=== PATIENT | female | born 1995 | race Caucasian/White ===

== ENCOUNTER 2017-05-07 15:26 | Emergency (ER) | payer BC, MEDICAID ==
[2017-05-07 15:40] VITALS: BP 138/62
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
[2017-05-07] MEDS ORDERED: BACIGUENT PACKET ONE (16:16)
[2017-05-07] MEDS ORDERED: BACIGUENT PACKET TP ONE (16:23)
[2017-05-07 16:40] VITALS: PULSE 70
[2017-05-07] MEDS ORDERED: TORAdol 30 mg Injection IM ONE (17:30)
[2017-05-07] MEDS ORDERED: TORAdol 30 mg Injection ONE (17:35)
[2017-05-07] MEDS ORDERED: Vibramycin 100 MG PO ONE (17:53)
[2017-05-07 17:55] VITALS: O2SAT 100
[2017-05-07] MEDS ORDERED: Vibramycin 100 MG ONE (18:00)
== END 2017-05-07 18:09 | disposition home or self-care (01) ==
LOC: ED 15:26
DX: L97.119 Non-pressure chronic ulcer of right thigh with unspecified severity (principal)
CPT/HCPCS: 84703; 87070; 96372; 99284; J1885; A9270-GY

== ENCOUNTER 2019-02-08 11:54 | Observation (INO) | payer BC, OTHER ==
[2019-02-08 13:15] LABS: Hemoglobin 12.3 gm/dl (12.0-16.0); Mean Cell Volume 96.5 fl (78-100); Mean Corpuscular Hgb Concent. 34.2 g/dl (32-36); Mean Platelet Volume 9.9 fl (6-9.5); Platelet Count 308 K/mm3 (150-450); Red Blood Count 3.73 M/mm3 (4.1-5.4); Red Cell Distribution Width 14.2 % (11.5-14.0); White Blood Count 10.7 K/mm3 (4.0-10.5)
[2019-02-08 13:28] LABS: Mean Corpuscular Hemoglobin 32.9 pg (26-32)
[2019-02-08 14:16] VITALS: BP 101/69; PULSE 74; O2SAT 99
[2019-02-08 15:28] LABS: Lymphocytes 25 % (24-44); Monocyte 7 % (0.0-12.0); Neutrophils 68 % (36.0-66.0); Total Cells Counted 100
[2019-02-08 15:29] LABS: Platelet Estimate NORMAL (NORMAL)
[2019-02-08 15:31] LABS: Granulocyte Absolute (ANC) 7.26 (1.4-6.9)
--- NOTE | 2019-02-08 20:21 | XRAY ---
Exam: OB biophysical profile without nonstress from 02/08/2019. Comparison: None. Indication decreased movement. Findings: Regarding breathing movements, there was at least 30 seconds of sustained breathing movements in 30 minutes of observation. This results in a score of 2 points. Regarding movements, there were 3 or more gross body movements in 30 minutes of observation. Simultaneous limb and trunk movements are counted as a single movement. The score for this was 2 points. Regarding tone, there was at least one episode of motion of a limb from a position of flexion to extension and a rapid return to flexion resulting in a score of 2 points. Qualitative amniotic fluid volume revealed a pocket of amniotic fluid that measured at least 1 cm in perpendicular planes resulting in a score of 2 points. Impression: 1. The biophysical profile total score was 8 points out of a maximum of 8 points.
--- NOTE | 2019-02-08 20:26 | XRAY ---
Exam: OB ultrasound greater than 14 weeks from 02/08/2019 Comparison: OB ultrasound greater than 14 weeks from 01/12/2019. Indication: Size greater than dates. Findings: A single live intrauterine fetus is seen in the cephalic lie. The placenta appears posterior and fundal. There is a normal amount of amniotic fluid with the amniotic fluid index measuring 15.3 cm, previous 15.4 cm. Measurements of the biparietal diameter, head circumference, abdominal circumference, and femur length suggest a composite gestational age of 36 weeks 0 days representing satisfactory intrauterine growth since the previous exam from 01/12/2019. According to the gestational age by dates, this is about one week 1 day further along. Estimated due date by ultrasound measurements is 03/08/2019 and estimated due date by dates is 03/16/2019. Estimated weight is 2691 g plus or -404 g (5 lbs. 15 oz.+ or -14 ounces) placing the fetus in the 65.2 percentile for weight. The size ratios are all within normal limits. body movement and respiration was seen by the electro mechanical technologist. 2 measurements of the heart rate measured 126 bpm and 138 bpm. A full detailed anatomy exam was not performed. A fluid-filled stomach and urinary bladder were identified. Impression: 1. 36 week 0 day single live intrauterine fetus in the cephalic lie. This represents satisfactory intrauterine growth since the previous OB ultrasound exam from 01/12/2019. See above. 2. The placenta is posterior and fundal. 3. A normal amount of amniotic fluid is seen with an amniotic fluid index of 15.3 cm.
[2019-02-09 12:27] LABS: RPR Screen Non Reactive (Non Reactive)
== END 2019-02-08 14:18 | disposition home or self-care (01) ==
LOC: OB 11:54
PROVIDERS: ADMIT Family Medicine; ATTEND Family Medicine
DX: Z34.83 Encounter for supervision of other normal pregnancy, third trimester (principal)
CPT/HCPCS: 0064U; 36415; 59025; 76805; 76819; 85025; 86592; 86593; 86701; 86702; 87389; G0378; 81003

== ENCOUNTER 2019-03-10 04:53 | Inpatient (IN) | payer BC, OTHER ==
[2019-03-10] MEDS ORDERED: Lactated Ringers 1,000 ML IV ONE (05:00)
[2019-03-10] MEDS ORDERED: Reglan 10 MG/2 ML IV SCH (05:00)
[2019-03-10] MEDS ORDERED: BICITRA 30 ML CUP PO SCH (05:00)
[2019-03-10] MEDS ORDERED: Pepcid 20 MG VIAL IV SCH (05:00)
[2019-03-10 05:58] LABS: Hematocrit 40.2 % (35-47); Hemoglobin 13.8 gm/dl (12.0-16.0); Mean Cell Volume 94.6 fl (78-100); Mean Corpuscular Hemoglobin 32.5 pg (26-32); Mean Corpuscular Hgb Concent. 34.3 g/dl (32-36); Mean Platelet Volume 10.1 fl (6-9.5); Platelet Count 290 K/mm3 (150-450); Red Blood Count 4.25 M/mm3 (4.1-5.4); Red Cell Distribution Width 14.6 % (11.5-14.0); White Blood Count 15.2 K/mm3 (4.0-10.5)
[2019-03-10 06:00] LABS: INR 0.9 (0.8-3.0); PROTIME 10.1 SECONDS (9.95-12.35)
[2019-03-10 06:02] LABS: Appearance CLEAR (CLEAR); Bilirubin NEGATIVE (NEGATIVE); Blood NEGATIVE Ery/ul (0-5); Epithelial Cells RARE /HPF (FEW); Glucose NEGATIVE (NEGATIVE); Ketones NEGATIVE (NEGATIVE); Leukocyte Esterase NEGATIVE (NEGATIVE); Nitrite NEGATIVE (NEGATIVE); Protein,Urine Dip NEGATIVE (Negative); Specific Gravity 1.006 (1.005-1.025); Urobilinogen NEGATIVE mg/dL (0-1)
[2019-03-10 06:02] LABS: PTT 31.3 SECONDS (25.3-37.0)
[2019-03-10 06:14] LABS: Amphetamine,Urine NEGATIVE (NEGATIVE); Barbiturate,Urine NEGATIVE (NEGATIVE); Benzodiazepine,Urine NEGATIVE (NEGATIVE); Cocaine,Urine NEGATIVE (NEGATIVE); Methadone,Urine NEGATIVE (NEGATIVE); Opiate,Urine NEGATIVE (NEGATIVE); PCP,Urine NEGATIVE (NEGATIVE); THC,Urine NEGATIVE (NEGATIVE)
[2019-03-10 06:42] LABS: ABO TYPING O; Antibody Screen NEGATIVE (NEGATIVE); RH TYPING POSITIVE
[2019-03-10] MEDS: Lactated Ringers 1,000 ML IV SCH (06:57)
[2019-03-10] MEDS ORDERED: CLINDAMYCIN-D5W 900 MG/50 ML*** 900 MG/50 ML BAG IV SCH (07:00)
[2019-03-10 07:16] LABS: BAND 7 % (0.0-2.0); Lymphocytes 26 % (24-44); Monocyte 4 % (0.0-12.0); Neutrophils 63 % (36.0-66.0); Platelet Estimate NORMAL (NORMAL); Total Cells Counted 100
[2019-03-10 07:17] LABS: Absolute Neutrophil Ct (ANC) 10.6 (1.4-6.9)
[2019-03-10] MEDS ORDERED: SUBLIMAZE 250 MCG/5 ML ONE (07:36)
[2019-03-10] MEDS ORDERED: DIPRIVAN 200 MG/20 ML IV ONE (07:36)
[2019-03-10] MEDS ORDERED: Quelicin Fliptop 200 MG/10 ML ONE (07:37)
[2019-03-10] MEDS ORDERED: Astramorph-Pf 5 MG/10 ML ONE (08:07)
[2019-03-10] MEDS ORDERED: Ephedrine Sulfate 50 MG/ML ONE (08:31)
[2019-03-10] MEDS ORDERED: PHENYLEPHRINE HCL ONE (08:31)
[2019-03-10] MEDS ORDERED: Pitocin 10 UNITS/ML ONE ×2 (08:40)
[2019-03-10] MEDS ORDERED: Marcaine 0.5%/Epinephrine 10 ML ONE (08:51)
[2019-03-10] MEDS ORDERED: MARCAINE 0.5%-EPI 1:200,000 VL IJ ONE (08:51)
[2019-03-10] MEDS ORDERED: BENADRYL 50 MG/ML ONE (08:57)
[2019-03-10 09:36] LABS: Appearance CLEAR (CLEAR); Bilirubin NEGATIVE (NEGATIVE); Blood NEGATIVE Ery/ul (0-5); Glucose NEGATIVE (NEGATIVE); Ketones NEGATIVE (NEGATIVE); Leukocyte Esterase NEGATIVE (NEGATIVE); Nitrite NEGATIVE (NEGATIVE); Protein,Urine Dip NEGATIVE (Negative); Specific Gravity 1.004 (1.005-1.025); Urobilinogen NEGATIVE mg/dL (0-1)
[2019-03-10 09:37] LABS: Bacteria NONE SEEN /HPF (NEGATIVE)
[2019-03-10] MEDS: Dextrose 5%-Lr IV Solution 1000 ML 1,000 ML IV SCH ×2 (09:53→18:41)
[2019-03-10] MEDS ORDERED: CLARITIN 10 MG PO PRN (10:00)
[2019-03-10] MEDS ORDERED: NORCO 5/325 MG PO PRN (10:00)
[2019-03-10] MEDS ORDERED: BENADRYL 50 MG/ML IV PRN (10:00)
[2019-03-10] MEDS ORDERED: Dulcolax 10 MG SUPP PR PRN (10:00)
[2019-03-10] MEDS ORDERED: LANSINOH 40 GM TOP PRN (10:00)
[2019-03-10] MEDS ORDERED: Anucort-HC SUPPOSITORY PR PRN (10:00)
[2019-03-10] MEDS ORDERED: TYLENOL EXTRA STRENGTH 500 MG PO PRN (10:00)
[2019-03-10] MEDS ORDERED: Zofran 4 MG/2 ML VIAL IV PRN (10:00)
[2019-03-10] MEDS ORDERED: Ambien 10 MG PO PRN (10:00)
[2019-03-10] MEDS ORDERED: Mylicon 80MG PO PRN (10:00)
[2019-03-10] MEDS ORDERED: MORPHINE SULFATE 2 MG INJ IV PRN (10:00)
[2019-03-10] MEDS ORDERED: Narcan 0.4 MG/ML IV PRN (10:00)
[2019-03-10] MEDS ORDERED: DEMEROL 50 MG IV PRN (10:00)
[2019-03-10] MEDS ORDERED: HOLD NARCOTIC ANALGESICS AND SEDATIVES X24 HR MC PRN (10:00)
--- NOTE | 2019-03-10 11:41 | OP ---
SURGERY DATE/TIME: 03/10/2019 0808 PREOPERATIVE DIAGNOSIS: Term intrauterine , previous section and undesired fertility. POSTOPERATIVE DIAGNOSIS: Term intrauterine , previous section and undesired fertility, delivered. PROCEDURES: 1) Repeat lower uterine segment transverse incision section. 2) Bilateral tubal ligation by partial salpingectomy. SURGEON: Dr. Sanchez. ANESTHESIA: Spinal. HISTORY: The patient is a 24 year old 5, now para 4 with twins, white female who presents now for elective repeat section. She was appraised of the risks of the procedure including the risk of wound infection, possible bleeding requiring transfusion, possible injury to intra-abdominal organs and a failure rate of the tubal procedure 1:300. The patient verbalized her understanding and desired to have the procedure performed. DESCRIPTION OF PROCEDURE: The patient was prepped and draped in the supine position. After adequate regional anesthesia was confirmed, a Pfannenstiel incision was made over the previous scar and carried down sharply through the fascia which was divided in a horizontal fashion. The rectus muscles were then bluntly retracted laterally. The peritoneal cavity was entered. A bladder flap was developed and the bladder was retracted inferiorly. The uterus was scored in a horizontal fashion and entered in the midline. The wound was extended using bandage scissors. A white male infant was delivered through the abdominal wound. The cord was doubly clamped and divided between the clamps. The baby was handed off for further care. The placenta was then manually removed from the uterus. The uterus was exteriorized and wrapped in moist gauze. A sponge stick was passed through the cervix. The wound edges were then reapproximated using 1-0 chromic suture in a running, interlocking fashion. Next, the right fallopian tube is then identified and elevated with Shanell clamp. A hemostat was passed through an avascular section of the mesosalpinx. The tube was tied on either side of the elevated area and exposed section sent to pathology for confirmation. The left tube was similarly treated. The cul-de-sac area was then swabbed clear of blood and amniotic fluid. The uterus was allowed to fall back into the abdominal cavity. Paracolic gutters were also swabbed clear of blood and amniotic fluid. The peritoneum was repaired using 3-0 chromic suture in a running fashion. The fascia was repaired using 0 Vicryl suture in a running fashion. The skin edges were reapproximated using ellen. The sponge, needle and instrument count was reported as correct at the end of the procedure. The patient was taken back to the recovery room in good condition. Estimated blood loss was 400 cc.
[2019-03-10] MEDS: MOTRIN 400 MG PO PRN ×2 (17:04→23:04)
[2019-03-10] MEDS: Colace 100 MG PO SCH (21:56)
[2019-03-10] MEDS: Nubain 10 MG/ML IV PRN (21:57)
[2019-03-11] MEDS: PERCOCET TABLET 5/325MG PO PRN ×4 (02:48→22:01)
[2019-03-11] MEDS: Nubain 10 MG/ML IV PRN (05:27)
[2019-03-11 05:43] LABS: Hematocrit 32.8 % (35-47); Hemoglobin 11.1 gm/dl (12.0-16.0); Mean Cell Volume 97.3 fl (78-100); Mean Corpuscular Hemoglobin 32.9 pg (26-32); Mean Corpuscular Hgb Concent. 33.8 g/dl (32-36); Platelet Count 255 K/mm3 (150-450); Red Blood Count 3.37 M/mm3 (4.1-5.4); Red Cell Distribution Width 14.7 % (11.5-14.0); White Blood Count 10.5 K/mm3 (4.0-10.5)
[2019-03-11] MEDS: MOTRIN 400 MG PO PRN ×3 (06:12→23:00)
[2019-03-11 06:59] LABS: Lymphocytes 29 % (24-44); Monocyte 3 % (0.0-12.0); Neutrophils 68 % (36.0-66.0); Platelet Estimate NORMAL (NORMAL); Total Cells Counted 100
[2019-03-11] MEDS ORDERED: NON-FORMULARY ITEM (Prenatal Vits W-Ca,Fe,Fa(<1mg) [Prenatal] 1 TAB) PO SCH (10:00)
[2019-03-11] MEDS: Colace 100 MG PO SCH ×2 (10:51→22:01)
[2019-03-11] MEDS: FERREX 150 PO SCH (10:51)
[2019-03-11] MEDS: THERAGRAN MULTIVITAMIN PO SCH (10:51)
[2019-03-11 12:39] VITALS: O2SAT 98
[2019-03-11] MEDS: NORCO 5/325 MG PO PRN ×2 (12:55→13:57)
[2019-03-11] MEDS: Dextrose 5%-Lr IV Solution 1000 ML 1,000 ML IV SCH ×2 (13:18→13:19)
[2019-03-11] MEDS: Lactated Ringers 1,000 ML IV SCH (13:19)
[2019-03-11] MEDS: BENADRYL 25 MG CAPSULE PO SCH ×2 (14:00→16:37)
[2019-03-12] MEDS: PERCOCET TABLET 5/325MG PO PRN ×2 (02:04→06:01)
[2019-03-12] MEDS: MOTRIN 400 MG PO PRN (05:00)
[2019-03-12 09:57] VITALS: BP 117/59; PULSE 80
--- NOTE | 2019-03-12 10:33 | PCM.DS ---
Discharge Summary Date of Admission: 03/10/19 04:53 Admitting Physician: DEION MATTHEW Consults: Consults on Case 03/10/19 05:00 Notify Physician OF ADMISSION 03/10/19 06:00 Notify Anesthesia Provider PRN 03/10/19 10:00 Notify Physician ROUTINE Primary Care Provider: DEION MATTHEW Allergies Allergies amoxicillin [From Augmentin] Allergy (Severe, Verified 03/10/19 06:10) clavulanic acid [From Augmentin] Allergy (Severe, Verified 03/10/19 06:10) Penicillins Allergy (Severe, Verified 03/10/19 06:10) Sulfa (Sulfonamide Antibiotics) Allergy (Severe, Verified 03/10/19 06:10) sulfamethoxazole [From Bactrim] Allergy (Severe, Verified 03/10/19 06:10) trimethoprim [From Bactrim] Allergy (Severe, Verified 03/10/19 06:10) Hospital Summary - Hospital Course Hospital Course: Pt is 24 yo now s/p . Came in for repeat c/section with Dr. Sanchez at 39 weeks. She is Hep C positive. Does have hx drug abuse but clean for over a year. She was late to care, 27 weeks. After that she was compliant with her visits. Surgery was un-eventful. For full details see Dr. Sanchez's operative note. She is . She had some trouble with pain control initially and was kept on percocet longer than is typical. I did tell her she will be going home on a small amount of norco and will not receive more after that. She was concerned about the tylenol but at this low level I do not think it will be an issue regarding her liver. She states there are no open CPS cases on her; she did voluntarily give custody of her other children to her father, but she has visitation. We did call the CPS hotline just to verify but I have no concerns about sending the baby home with mom at this time. UDS negative at the time of admission. - Vitals & Intake/Output Vital Signs: Vital Signs Temperature 98.4 F 03/12/19 08:00 Pulse Rate 80 03/12/19 08:00 Respiratory Rate 18 03/12/19 08:00 Blood Pressure 117/59 03/12/19 08:00 O2 Sat by Pulse Oximetry 98 03/12/19 02:00 Intake & Output: Intake & Output 03/09/19 03/10/19 03/11/19 03/12/19 11:59 11:59 11:59 11:59 Intake Total 6840 1450 Output Total 1750 Balance 5090 1450 Weight 115.666 kg - Lab Result Diagrams: 03/11/19 05:15 Micro Results-Entire Visit: Microbiology 03/10/19 08:20 Urine Culture - Final Urine, Catheterized NO GROWTH - Procedures and Test Procedures and Tests throughout Hospitalization: Therapy Orders & Screens 03/10/19 09:17 Standby STAT Comment: Diagnosis: REPEAT Discharge Exam General Appearance: no apparent distress, alert Neurologic Exam: oriented x 3, cooperative Eye Exam: eyes nml inspection Ears, Nose, Throat Exam: moist mucous membranes Neck Exam: normal inspection Respiratory Exam: normal breath sounds, lungs clear, No crackles/rales, No rhonchi, No wheezing Cardiovascular Exam: regular rate/rhythm, normal heart sounds, No murmur Gastrointestinal/Abdomen Exam: soft, normal bowel sounds, other (fundus firm under umbilicus. wound c/d/i) Back Exam: normal inspection, No rash Extremity Exam: normal inspection, No pedal edema, No swelling Skin Exam: normal color, warm, dry, No rash Final Diagnosis/Problem List - Final Discharge Diagnosis/Problem (1) delivery delivered Current Visit: Yes Status: Acute Assessment & Plan: Doing well post op. Will send pt home with #20 of norco and ibuprofen. Code(s): O82 - ENCOUNTER FOR DELIVERY WITHOUT INDICATION (2) Anemia Current Visit: Yes Status: Acute Assessment & Plan: Mild, hgb 11.1 yesterday. Code(s): D64.9 - ANEMIA, UNSPECIFIED (3) Hepatitis C Current Visit: Yes Status: Chronic Assessment & Plan: I have sent a message to my office staff to get information about where and when to refer her to specialist for treatment. - Discharge Disposition: Home, Self-Care Condition: Good Prescriptions: New Ibuprofen 800 mg PO TID PRN #35 tablet PRN Reason: Pain Hydrocodone/Acetaminophen [[place] 10-325 Tablet] 1 each PO Q4H PRN #20 tablet MDD 4 PRN Reason: Pain Continue Vits W-Ca,Fe,FA(<1Mg) [] 1 tab PO DAILY Diphenhydramine HCl [Benadryl] 25 mg PO DAILY Follow up with: DEION MATTHEW [Primary Care Provider] - 1 Week
[2019-03-12] MEDS: THERAGRAN MULTIVITAMIN PO SCH (10:42)
[2019-03-12] MEDS: FERREX 150 PO SCH (10:43)
[2019-03-12] MEDS: Colace 100 MG PO SCH (10:43)
== END 2019-03-12 12:15 | disposition home or self-care (01) | DRG 784 ==
LOC: OB 04:53
PROVIDERS: ADMIT Family Medicine; ATTEND Family Medicine
PROC: 10D00Z1 Extraction of Products of Conception, Low, Open Approach (ICD-10-PCS; principal; 2019-03-10)
PROC: 0UB70ZZ Excision of Bilateral Fallopian Tubes, Open Approach (ICD-10-PCS; 2019-03-10)
DX: O34.211 Maternal care for low transverse scar from previous cesarean delivery (principal); O98.42 Viral hepatitis complicating childbirth; B19.20 Unspecified viral hepatitis C without hepatic coma; Z3A.39 39 weeks gestation of pregnancy; Z37.0 Single live birth; Z30.2 Encounter for sterilization; D64.9 Anemia, unspecified
CPT/HCPCS: 36415; 62322; 64488; 76937; 76942; 80307; 81001; 85025; 85610; 85730; 86850; 86900; 86901; 87086; 87340; 94799; J0330; J1200; J2274; J2300; J2370; J2590; J2704; J3010; L0625; A9270-GY